=== PATIENT | male | born 1995 | race Caucasian/White ===

== ENCOUNTER 2016-05-22 14:34 | Inpatient (IN) | payer OTHER ==
[~2016-05-22] VITALS: Ht 180.3 cm; Wt 70.7 kg
--- NOTE | 2016-05-22 14:38 | ED.REPORT ---
HPI-Overdose/Alcohol Toxicity Date of Service May 22, 2016 ED Provider: José Miguel Martell MD A 21 year old male with a history of gender transition is brought to the ED due to a suicide attempt through overdose. The pt intentional ingested 120 Clonidine three hours ago in addition to half a bottle of tequila. Paramedics found his bradycardic in the 30's. History is limited due to pt condition. Nursing Notes Stated Complaint: SUICIDIAL IDEATIONS Nursing Notes Reviewed: Yes Allergies: Coded Allergies: No Known Allergies (Unverified , 05/22/16) General Time Seen by Provider: 14:36 Chief Complaint Suicidal attempt Hx Obtained From: Patient, EMS Arrived By: Ambulance Onset Occurred: 1 - 4 hours ago Symptom Duration: Since onset Recent Healthcare: No recent doctor visit, No recent hospitalization Similar Sx Previous: No Past Medical History Past Medical History gender transition Past Surgical History none reported Smoking History Unknown if Ever Smoker Social History none reported Ambulatory Status Independent Review of Systems Unable to Obtain ROS Patient condition Physical Exam Initial Vital Signs see paper chart Initial VS: Reviewed General/Constitutional: Awake Alertness: Positive: Somnolent GCS 14 open eyes to voice Respiratory / Chest: Atraumatic, Breath sounds NL, Breath sounds = bilat, No respiratory distress Cardiovascular: Regular rhythm, Heart sounds NL Heart Rate / Rhythm: Positive: Bradycardia Abdomen: Atraumatic, Soft, Non-tender Mental Status: Positive: Lethargic Lethargic Head / Eyes: Atraumatic, Normocephalic ENT: Atraumatic, Airway patent, Mucous membranes moist Neck: Atraumatic, Supple, Full range of motion Back: Atraumatic, Full range of motion Skin: Atraumatic, Color NL, No rash, Warm, Dry Upper Extremity / MS: Atraumatic, Full range of motion Lower Extremity / Pelvis / MS: Atraumatic, Full range of motion Interpretation & Diagnostics Lab Results Interpretation Result Diagram: 05/22/16 1445 05/22/16 1445 Test 05/22/16 14:45 05/22/16 15:39 White Blood Count 10.0th/mm3 (3.8-10.1) Red Blood Count 5.28mil/mm3 (3.90-5.20) Hemoglobin 15.5g/dL (12.0-15.6) Hematocrit 46.0% (35.0-46.0) Mean Corpuscular Volume 87.1fL (81-100) Mean Corpuscular Hemoglobin 29.4pg (27.0-35.0) Mean Corpuscular Hemoglobin Concent 33.7% (32.0-37.0) Red Cell Distribution Width 12.1% (12.3-15.4) Platelet Count 258bil/L (150-400) Sodium Level 136mEq/L (134-144) Potassium Level 4.1mEq/L (3.5-5.2) Chloride Level 98mEq/L (97-108) Carbon Dioxide Level 24mmol/L (18-29) Blood Urea Nitrogen 14mg/dL (6-20) Creatinine 0.62mg/dL (0.76-1.27) Estimat Glomerular Filtration Rate 171mL/min (>59) Glucose Level 162mg/dL (60-99) Calcium Level 9.7mg/dL (8.5-10.1) Total Bilirubin 0.4mg/dL (0.0-1.2) Aspartate Amino Transf (AST/SGOT) 20U/L (0-50) Alanine Aminotransferase (ALT/SGPT) 15U/L (0-44) Alkaline Phosphatase 47U/L (25-150) Total Protein 6.8g/dL (6.4-8.4) Albumin 4.7g/dL (3.4-5.0) Salicylates Level < 3.0ug/mL (30-250) Acetaminophen Level < 15.0ug/mL Rx (10-25) Alcohol, Quantitative < 10mg/dL (0-10) Hold Rodríguez Top Tube Received (Received) ECG Interpretation ECG Interpretation: normal sinus rhythm with a rate of 68 Time: 16:22 Interpreted by: ED physician X-Ray Chest Interpretation Chest Xray Interpretation: IMPRESSION: Endotracheal tube with the tip just above the cathy/at the origin of the right bronchus. Recommend withdrawing approximately 3 cm No acute consolidation. Findings were personally telephoned to Dr. Inocente Godinez in the emergency department at 1559 hours 05/22/16 Dictated by: Pascual Daily M.D. on 05/22/2016 at 15:57 Approved by: Pascual Daily M.D. on 05/22/2016 at 15:59 Interpretation / Wet Read by: Interpret - Radiologist Procedures Central Line Placement Time: 15:33 Procedure Performed by: ED physician Consent / Setup / Site Prep: Consent from patient, Time-out performed, Oxygen administered, Pulse oximeter applied, ekg monitor applied, Hand hygiene observed, Standard surgical scrub, Max barrier precaution, Sterile drapes applied, Position supine Skin Preparation Agent: Hibiclens - Chlorhexidine Procedural Sedation/Analgesia: Sedation: Etomidate, Sedation: Other ( succinylcholine) Side / Location / Ultrasound: Subclavian right, Ultrasound assisted Catheter / Lumen / Technique: Catheter size (7.5), Triple lumen, Seldinger technique, Secured w catheter device, Secured with tape Central Line Tip Location: Cath tip good position in the SVC Post-Procedure / Complications: Antibiotic oint applied, Dressing placed, Condition improved, Tolerated procedure well, Patient stable Intubation Time: 15:08 Procedure Performed by: ED physician Consent / Setup / Site Prep: Consent from patient, Time-out performed, Oxygen administered, Pulse oximeter applied, ekg monitor applied, Hand hygiene observed Patient Position: Sniff position Blade / ET Tube / Route: Davison scope, Route: oral Premedicated: Atropine ___ mg Procedural Sedation/Analgesia: Sedation: Etomidate Neuromuscular Agent: Succinylcholine ET Confirmation: Direct visualization, BS equal, End tidal CO2 device, CXR, Rising O2 sat Secured / Marked: ET tube device Complications: None Post-Procedure: Condition improved, Tolerated procedure well, Patient stable Re-Eval/Medical Decision Med Decision/Clinical Course 21-year-old born male identifies as female presenting after taking 120 clonidine 3 hours prior to arrival. Patient presented somnolent. ACS was initially 14 but then dropped quickly and patient was not protecting airway. Patient was bradycardic in the 30s. Patient was intubated emergently. Central line was placed. Patient's heart rate improved with 3 doses atropine. Discussed with poison control and they recommended Narcan which did not help. They also recommended supporting bradycardia with atropine and then if needed dopamine or norepinephrine drip. Patient did not need tripped prior to being transferred. Patient was hypertensive. Patient was sedated with propofol drip. Discussed with family mother and brother who were seen by forensic social worker. Patient transferred to ICU in critical condition. Source of Hx: EMS Re-Evaluation/Progress #1: Time of Eval: 14:58 Re-Evaluation/Progress Note: Pt's heart rate and respiratory rate are decreasing. Re-Evaluation/Progress #2: Time of Eval: 15:08 Re-Evaluation/Progress Note: Pt rechecked, whose heart rate and respiratory rate continue to decrease. Pt is intubated without complications. Re-Evaluation/Progress #3: Time of Eval: 15:33 Re-Evaluation/Progress Note: Pt rechecked, who is stable. Central line is placed. Pt tolerated the procedure and there were no complications. Re-Evaluation/Progress #4: Time of Eval: 16:02 Re-Evaluation/Progress Note: Intubation adjusted following x-ray. Re-Evaluation/Progress #5: Time of Eval: 16:14 Re-Evaluation/Progress Note: Spoke with pt's family regarding pt's condition. Pt's family understands the situation and the need for admission. Consultation : Call Returned at: 14:34 [employer] Principal: Agrees with eval, Agrees with plan Note: Consulted with Poison Control regarding pt's case. Poison Control recommends Narcan and IV fluids, as well as Atropine and Norepinephrine drip if necessary. Counseled Regarding: Diagnosis, Lab results, Need for admission Discharge & Departure Impression: Primary Impression: Clonidine overdose Encounter type: initial encounter Injury intent: intentional self-harm Qualified Code: T46.5X2A - Poisoning by other antihypertensive drugs, intentional self-harm, initial encounter Additional Impressions: Bradycardia Respiratory depression Disposition: ADMITTED TO HOSPITAL Discharge Condition All VS Reviewed: Yes Condition: Stable Referrals: [facility] Crit Care Except Billable Proc Time Spent: 105-134 minutes Services Performed: Patient management by me, Time spent at bedside, Reviewing test results, Documentation in record, Other Scribe Attestation Portions of this note were transcribed by Rayne Najera I, Dr. Martell personally performed the history, physical exam and medical decision-making; I reviewed and confirmed the accuracy of the information in the transcribed note. Signed by: Ck Perez, 05/22/16 and 17:32. copies to: [facility] José Miguel Martell MD May 22, 2016 14:38 RAYNE NAJERA May 22, 2016 15:59
[2016-05-22] MEDS ORDERED: 0.9% Sodium Chloride 1,000 ML IV ONE (14:40)
[2016-05-22 15:07] LABS: Mean Corpuscular Hemoglobin 29.4 pg (27.0-35.0); Mean Corpuscular Volume 87.1 fL (81-100)
[2016-05-22] MEDS ORDERED: Propofol 10,000 mCg/mL 100 mL Inj ONE (15:21)
[2016-05-22] MEDS ORDERED: Alum-Mag Hydrox-Simeth 30 mL Suspension PO PRN (16:00)
[2016-05-22] MEDS ORDERED: Ondansetron 2 mg/mL 2 mL Inj IVPUSH PRN ×2 (16:00→17:20)
--- NOTE | 2016-05-22 16:01 | DRSVH ---
PROCEDURE: X-RAY CHEST ONE VIEW, PORTABLE ([id number]) INDICATIONS: POST INTUBATION TECHNIQUE: One view of the chest was acquired. COMPARISON: None. FINDINGS: Surgical changes and devices: Endotracheal tube with the tip seen at the origin of the right bronchus , just above the cathy. Lungs and pleura: No pleural effusions or pneumothorax. Lungs are clear. Mediastinum: Mediastinal contours appear normal. Heart size is normal. Bones and chest wall: No suspicious bony lesions. Overlying soft tissues appear unremarkable. IMPRESSION: Endotracheal tube with the tip just above the cathy/at the origin of the right bronchus. Recommend withdrawing approximately 3 cm No acute consolidation. Findings were personally telephoned to Dr. Inocente Godinez in the emergency department at 1559 hours 03/26 Dictated by: Pascual Daily M.D. on 05/22/2016 at 15:57 Approved by: Pascual Daily M.D. on 05/22/2016 at 15:59
[2016-05-22] MEDS ORDERED: Atropine 1 mg/10 mL (Code) Syringe IVPUSH ONE (16:26)
--- NOTE | 2016-05-22 16:40 | DRSVH ---
PROCEDURE: X-RAY CHEST ONE VIEW, PORTABLE ([id number]) INDICATIONS: POST CENTRAL LINE PLACEMENT TECHNIQUE: One view of the chest was acquired. COMPARISON: [facility], CR, XR CHEST 1VW (PORTABLE), 05/22/2016, 15:12. FINDINGS: Surgical changes and devices: Endotracheal tube is seen with the tip approximately 4-5 cm above the c jhonny. Enteric tube is present with the tip below the GE junction however not included on the study. There is a right internal jugular central venous catheter with the tip projecting in the lower SVC. Lungs and pleura: No pleural effusions or pneumothorax. Lungs are clear. Mediastinum: Mediastinal contours appear normal. Heart size is normal. Bones and chest wall: No suspicious bony lesions. Overlying soft tissues appear unremarkable. IMPRESSION: Endotracheal tube with the tip approximately 4-5 cm above the cathy. Additional support equipment as detailed above. No pneumothorax. Dictated by: Pascual Daily M.D. on 05/22/2016 at 16:37 Approved by: Pascual Daily M.D. on 05/22/2016 at 16:38
--- NOTE | 2016-05-22 16:53 | ABG ---
DateTimeAnalyzed 16:47:00 -_ pH ____7.520 - 7.350 7.450 pCO2 ___26.8__ -mmHg 35.0 45.0 pO2 607 -mmHg 69.0 116 HCO3- ___21.8__ -mmol/L 22.0 26.0 ABE ____0.8__ -mmol/L -2.0 2.0 tHb ___16.2__ -g/dL O2Hb ___98.1__ -% COHb ____0.5__ -% MetHb ____1.1__ -% sO2 ___99.7__ -% FIO2 __100.0__ -% PEEP ____5.0__ -cmH2O Set_RR ___18.0__ -b/min Vt __500.0__ -L Drawn By MT - Date/Time Notified____ 16:53:00 -_ Oxygen Device 1 VENTILATOR - Notified By MT - Notified Whom ___Dr. Inocente-car[place] -____ B 767 -mmHg tO2 ___23.9__ -Vol%
[2016-05-22] MEDS ORDERED: Propofol 10 mg/mL 20 mL Inj ONE (16:59)
--- NOTE | 2016-05-22 17:37 | PCM.HPMED ---
Subjective Date of Service May 22, 2016 Primary Provider: Admitting Physician: Shilpa Otto MD Primary Care Physician: Cassy Leigh Attending Physician: Shilpa Otto MD Chief Complaint: Clonidine overdose with suicidal ideation History of Present Illness: This is a 21-year-old male who is transgender who was brought to the ER by paramedics with an overdose of clonidine. This occurred 3 hours prior to transport to the emergency room and reportedly ingested 120 clonidine pills. This was an intentional ingestion with suicidal ideation unable to get any further history as patient currently is intubated. Patient was having problems with bradycardia and did respond to some IV atropine. Also had issues with decreased respiratory rate hence required intubation while in the emergency room. Patient's salicylate level was less than 3.0 acetaminophen level less than 15.0 alcohol level less than 10. EKG per ER M.D. and his report revealed normal sinus at a rate of 68. No other history is obtainable at this time. Review of Systems: Unobtainable Home Medications Unobtainable PMH Gender transition Other history is not obtainable Family History Unobtainable Social History Smoking Status: Unknown if Ever Smoker Additional Information All social history unobtainable Exam Vital Signs See ER note Exam Constitutional Young phenotypically male who is currently intubated Head: Normocephalic atraumatic Eyes PERRLA DC EOMI Neck: No adenopathy Chest: Clear to auscultation Cor: Regular rate and rhythm S1-S2 without murmur Abdomen: Soft nontender bowel sounds present Extremities: No pedal edema Skin no rashes Psych: Unable to assess Neuro: Does respond to painful stimuli moves all extremities Lab and Diagnostics Labs Laboratory Tests 72 Hours Test 05/22/16 14:45 05/22/16 15:39 05/22/16 17:16 White Blood Count 10.0th/mm3 (3.8-10.1) Red Blood Count 5.28mil/mm3 (3.90-5.20) Hemoglobin 15.5g/dL (12.0-15.6) Hematocrit 46.0% (35.0-46.0) Mean Corpuscular Volume 87.1fL (81-100) Mean Corpuscular Hemoglobin 29.4pg (27.0-35.0) Mean Corpuscular Hemoglobin Concent 33.7% (32.0-37.0) Red Cell Distribution Width 12.1% (12.3-15.4) Platelet Count 258bil/L (150-400) Sodium Level 136mEq/L (134-144) Potassium Level 4.1mEq/L (3.5-5.2) Chloride Level 98mEq/L (97-108) Carbon Dioxide Level 24mmol/L (18-29) Blood Urea Nitrogen 14mg/dL (6-20) Creatinine 0.62mg/dL (0.76-1.27) Estimat Glomerular Filtration Rate 171mL/min (>59) Glucose Level 162mg/dL (60-99) Calcium Level 9.7mg/dL (8.5-10.1) Total Bilirubin 0.4mg/dL (0.0-1.2) Aspartate Amino Transf (AST/SGOT) 20U/L (0-50) Alanine Aminotransferase (ALT/SGPT) 15U/L (0-44) Alkaline Phosphatase 47U/L (25-150) Total Protein 6.8g/dL (6.4-8.4) Albumin 4.7g/dL (3.4-5.0) Salicylates Level < 3.0ug/mL (30-250) Acetaminophen Level < 15.0ug/mL Rx (10-25) Alcohol, Quantitative < 10mg/dL (0-10) Hold Rodríguez Top Tube Received (Received) Result Diagram: 05/22/16144405/22/161444 Assessment & Plan # Clonidine overdose with suicidal ideation, acute, present on admission [facility] poison control use IV atropine when necessary bradycardia can also use IV Narcan when necessary also may need norepinephrine drip if necessary Currently intubated secondary to respiratory depression and airway protection We will be in suicidal precautions # Suicidal ideation Once medically stable will need to be assessed by psychiatry # DVT prophylaxis We will give the subcutaneous prophylactic Lovenox # CODE STATUS Patient is full code Pain Evaluation: Adequate Pain Control GI Prophylaxis: H2 emery VTE Prophylaxis: Sub-Q Enoxaparin Resuscitation Status: CPR: Attempt Resuscitation Time spent 60 minutes Shilpa Otto MD May 22, 2016 17:36
--- NOTE | 2016-05-22 17:44 | NUR ---
Pt admitted to CCU at approx 1715hrs Pt is intubated, on the vent, propofol infusing at 30mcg. she is sedated, is in SR in the 70's BP elevated current BP 170/132. Family are aware and will be coming up to CCU in a while. They did see pt in the ER and have been updated. Karimi is insitu. NG to suction. Sats are 100% on 40% FIO2.
[2016-05-22 17:50] LABS: APPEARANCE,URINE CLEAR (CLEAR,HAZY); COLOR,URINE YELLOW (YELLOW)
[2016-05-22 17:51] LABS: OCCULT BLOOD,URINE NEGATIVE (NEGATIVE); UROBILINOGEN,URINE NORMAL (NORMAL)
[2016-05-22 18:03] VITALS: BP 158/129; PULSE 62; RESP 15
[2016-05-22 18:15] VITALS: BP 178/135; O2SAT 98
[2016-05-22] MEDS ORDERED: Atropine 1 mg/10 mL (Code) Syringe IVPUSH PRN (18:20)
[2016-05-22 18:23] LABS: TROPONIN T < 0.010 ug/L (0.0-0.011)
[2016-05-22] MEDS: 0.9% Sodium Chloride 1,000 ML IV SCH (18:25)
--- NOTE | 2016-05-22 18:33 | NUR ---
Pt hypertensive and bradycardic Pt continues to be hypertensive although diastolic is decreasing, she is now 141/109. Pt has dropped her HR over the past 30 mins from SR in the 70's to SB in the 40's. notified and order received for atropine if BP drops below 45. NS infusing at 125cc/hr
[2016-05-22 19:04] VITALS: BP 131/99; O2SAT 100
[2016-05-22] MEDS ORDERED: Sodium Chloride LOK Flush 10 mL Syringe IVFLUSH PRN ×2 (20:00)
[2016-05-22 20:30] VITALS: BP 120/83; PULSE 40; RESP 14; O2SAT 100
[2016-05-22] MEDS: Famotidine Inj 50 ML IV SCH (21:22)
[2016-05-22] MEDS: Propofol Inj 1,000,000 MCG in IV Premix 1 EACH IV SCH (22:43)
[2016-05-23] VITALS (13 sets, daily range): BP systolic 109–129; BP diastolic 58–88; PULSE 43–55; RESP 14–18; O2SAT 98–100
[2016-05-23] MEDS: 0.9% Sodium Chloride 1,000 ML IV SCH ×4 (02:02→21:18)
[2016-05-23] MEDS: Propofol Inj 1,000,000 MCG in IV Premix 1 EACH IV SCH (02:02)
[2016-05-23] MEDS ORDERED: CLON0.1T PO (02:31)
[2016-05-23] MEDS ORDERED: ATOM10CA PO (02:31)
[2016-05-23 04:18] LABS: BASOPHILS % (AUTO) 0.2 % (0-3); EOSINOPHILS % (AUTO) 0.8 % (0-5); MONOCYTES % (AUTO) 9.3 % (4-12); Mean Corpuscular Hemoglobin 29.4 pg (27.0-35.0); Mean Corpuscular Volume 87.1 fL (81-100); Platelet Count 227 bil/L (150-400)
--- NOTE | 2016-05-23 04:56 | ABG ---
DateTimeAnalyzed 04:49:00 -_ pH ____7.429 - 7.350 7.450 pCO2 ___33.8__ -mmHg 35.0 45.0 pO2 186 -mmHg 69.0 116 HCO3- ___22.0__ -mmol/L 22.0 26.0 ABE ___-1.0__ -mmol/L -2.0 2.0 tHb ___15.5__ -g/dL O2Hb ___97.5__ -% COHb ____0.3__ -% MetHb ____1.1__ -% sO2 ___98.9__ -% FIO2 ___35.0__ -% PRVC 14 - PEEP ____5.0__ -cmH2O Set_RR ___14.0__ -b/min Vt __500.0__ -L Drawn By AF - Spontaneous_RR ___14.0__ -b/min Oxygen Device 1 VENTILATOR - Notified By mm - Notified Whom rn - B 766 -mmHg tO2 ___21.5__ -Vol% Mitch test N/A -
--- NOTE | 2016-05-23 06:27 | NUR ---
Bradycardia/respiratory/sedation: Pt's heart rate had been between 38-42 most of the night at 0100 it did bump up to 43-45 and at 0400 started to inch into the low 50s. Propofol had been titrated up to 50mcg/kg/min due to pt waking up and being restless and trying to pull ET tube. Pt has maintained good Spo2 at 100% all night. Pt does wake at times and was able to follow commands.
--- NOTE | 2016-05-23 08:22 | DRSVH ---
PROCEDURE: X-RAY CHEST ONE VIEW, PORTABLE ([id number]) INDICATIONS: intubated TECHNIQUE: One view of the chest was acquired. COMPARISON: [facility], CR, XR CHEST 1VW (PORTABLE), 05/22/2016, 15:47. FINDINGS: Surgical changes and devices: Stable position of ETT, nasogastric tube and right IJ CVL. Lungs and pleura: No pleural effusions or pneumothorax. Lungs are clear. Mediastinum: Mediastinal contours appear normal. Heart size is normal. Bones and chest wall: No suspicious bony lesions. Overlying soft tissues appear unremarkable. IMPRESSION: No acute cardiopulmonary disease. Dictated by: Jayden DARNELL Interpreted: Linda Pettit MD on 05/23/2016 at 8:21 Transcribed by: IDA on 05/23/2016 at 8:21 Approved by: Linda Pettit M.D. on 05/23/2016 at 9:52
[2016-05-23] MEDS ORDERED: Influenza (Adult) Vaccine 0.5 mL Syringe IM ONE (08:30)
[2016-05-23] MEDS: Famotidine Inj 50 ML IV SCH ×2 (10:06→21:18)
--- NOTE | 2016-05-23 16:43 | PCM.CHPMED ---
Subjective Date of Service: May 23, 2016 Primary Physician: Admitting Physician: Shilpa Otto MD Primary Care Physician: Cassy Leigh Attending Physician: Shilpa Otto MD Admit Status: From the Emergency Department Chief Complaint: Chief Complaint: Clonidine Overdose History of Present Illness: ICU/pulmonary consult History taken from admit note by Dr. Otto This is a 21-year-old male who is transgender who was brought to the ER by paramedics with an overdose of clonidine. This occurred 3 hours prior to transport to the emergency room and reportedly ingested 120 clonidine pills. This was an intentional ingestion with suicidal ideation unable to get any further history as patient currently is intubated. Patient was having problems with bradycardia and did respond to some IV atropine. Also had issues with decreased respiratory rate hence required intubation while in the emergency room. Patient's salicylate level was less than 3.0 acetaminophen level less than 15.0 alcohol level less than 10. EKG per ER M.D. and his report revealed normal sinus at a rate of 68. No other history is obtainable at this time. We are asked to see the patient to provide ventilatory management Review of Systems: Complete review of systems performed; pertinent positives and negatives per history of present illness; all other review of systems negative PMH Past Medical History Transgender female Hx Any Other Health Problems?: NoHx Diabetes: No Surgical History None Allergies: Coded Allergies: No Known Allergies (Unverified , 05/22/16) Family History Family History Unobtainable from patient Social History Hx Alcohol Use: Yes (occasional)Hx Substance Use: No Smoking Status: Unknown if Ever Smoker Living Arrangement: with Family Exam Vital Signs Vital Sign - Last Date Time Temp Pulse Resp B/P Pulse Ox O2 Delivery O2 Flow Rate FiO2 05/23/16 12:41 53 05/23/16 08:30 36.8 14 125/68 100 Mechanical Ventilator 35 Intake and Output 05/22/16 05/22/16 05/23/16 Cumulative From/Thru 15:00 23:00 07:00 05/22/16 18:01 - 05/23/16 06:05 Intake Total 15 ml 1629 ml 1644 ml Output Total 600 ml 550 ml 1150 ml Balance -585 ml 1079 ml 494 ml Intake IV Total 15 ml 1629 ml 1644 ml Output Urine Total 500 ml 500 ml 1000 ml Gastric Drainage Total 100 ml 50 ml 150 ml General: Alert, Cooperative, No Acute Distress Head: Normal Eyes: PERRLA, EOMI Nose: Mucous Membr Moist/[place] Chest & Lungs: Chest Wall Normal, Clear to auscultation & percussion Cardiovascular: Exam Unremarkable, Regular Rate/Rhythm Pulses: NL carotid, radial, femoral, DP, PT Abdomen: Non-tender Musculoskeletal: Unremarkable Extremities: No cyanosis/clubbing/edma bilat Neurological: Grossly Neurologically Intact Lab and Diagnostics Result Diagram: 05/23/1639905/23/16399 Assessment & Plan Assessment Problem list 1 clonidine overdose 2. Ventilator management Patient was seen and examined this a.m. and determination was made that due to the patient's alertness spontaneous breathing trial will be tried. Patient passed this trial and was extubated this morning. Patient was then transferred to the progressive critical care unit Time spent: 20 minutes Problems: Pain Evaluation: Adequate Pain Control GI Prophylaxis: H2 emery VTE Prophylaxis: Sub-Q Enoxaparin VTE Mechanical Devices: Intermittant Pneumatic CD Resuscitation Status: CPR: Attempt Resuscitation Attending Statement The patient was seen and examined together with Dr. Mejía on 05/23/2015 and I have added additional information to the note above. Reason for Consultation: Ventilator Management, initial Yifan Mejía DO May 23, 2016 16:43 Rex Chaidez MD Jun 10, 2016 09:27
--- NOTE | 2016-05-23 17:42 | NUR ---
Transfer Extubated at 0830 to RA at 99% Alert and oriented x3. Swallow eval complete, tolerating general diet. Saline locked. Dc'd robles catheter with 800cc out, no urine at this time. Up to ambulate with steady gait and SBA. Psych consult ordered. Signed no harm contract, suicide score is a 13 with q30min checks. SB 50's. Family at bedside. Pt appears to be in good spirits with motivation to seek mental health counseling.
--- NOTE | 2016-05-23 17:48 | PCM.PNMED ---
Subjective Date of Service May 23, 2016 Subjective Overnight: Pt remained bradycardic with HR 38-42 overnight. She satted well at 100% O2. Began to wake up towards the morning and was able to follow commands. Today: Did well on a pressure support trial and was awake, alert, and following commands. She was extubated and denies shortness of breath, chest pain, fevers, chills, coughing, or wheezing. She denies suicidal ideation at this time. Exam Vital Signs Vital Sign - Last Date Time Temp Pulse Resp B/P Pulse Ox O2 Delivery O2 Flow Rate FiO2 05/23/16 16:30 36.8 53 14 125/70 100 Room Air 05/23/16 08:30 35 Intake and Output 05/22/16 05/22/16 05/23/16 Cumulative From/Thru 15:00 23:00 07:00 05/22/16 18:01 - 05/23/16 06:05 Intake Total 15 ml 1629 ml 1644 ml Output Total 600 ml 550 ml 1150 ml Balance -585 ml 1079 ml 494 ml Intake IV Total 15 ml 1629 ml 1644 ml Output Urine Total 500 ml 500 ml 1000 ml Gastric Drainage Total 100 ml 50 ml 150 ml Exam General: Alert, Oriented X3, Cooperative, No Acute Distress Head: Normocephalic, atraumatic. External ears normal. Eyes: PERRLA, EOMI. Anicteric sclerae. Mouth: Mouth Normal, Mucous Membranes Moist/[place] Neck: Neck supple with full range of motion. Chest & Lungs: Clear to auscultation bilaterally with no crackles, wheezes, or rhonchi. Cardiovascular: Bradycardic, Normal S1, Normal S2, No Murmurs/Rubs/Gallops Abdomen: Non-tender, Non-distended, No masses, Normoactive bowel tones, Soft Musculoskeletal: Normal Range of Motion Extremities: No cyanosis/clubbing/edema bilaterally Neurological: Grossly Neurologically Intact, Normal Speech Lab and Diagnostics Result Diagram: 05/23/1639905/23/16399 Assessment & Plan Patient is a 21-year-old male who is transgender who was brought to the ER by paramedics with an overdose of clonidine. She was intubated on admission for respiratory depression and was extubated after 1 day, on 05/23/16. 1. Clonidine overdose with suicidal ideation, acute, present on admission. Stable. - Intubated 05/22/16 secondary to respiratory depression and airway protection. Extubated 05/23/16 after successful pressure support trial. - IV atropine when necessary for bradycardia - IV Narcan given once on admission - Monitor blood pressure. 2. Elevated troponin, acute. Not present on admission. Improving. - Pt initially had negative troponin, but repeat troponin increased to 0.67. Now decreased to 0.393. Likely mild insult secondary to myocardial stress related to clonidine overdose. - Will repeat troponin 3. Suicidal ideation. Stable. - Patient denies suicidal ideation today after extubation. - Suicidal precautions - Dr. Calles of Psychiatry has been consulted. We appreciate his input. GI Prophylaxis: H2 emery VTE Prophylaxis: Sub-Q Enoxaparin VTE Mechanical Devices: Intermittant Pneumatic CD Resuscitation Status: CPR: Attempt Resuscitation Attending Statement The patient was seen and examined together with Dr. Valadez on 05/23/2016 and I agree with the history, exam and plan as outlined in the note above. . Landon Valadez May 23, 2016 17:48 Wade Gardner MD May 27, 2016 17:30
--- NOTE | 2016-05-24 00:10 | NUR ---
pt denies any suicidal ideation pt a/o times three, steady on feet around room, coop, pleasant, speaking with family members when visited, spoke with mom with "much needed conversation" stating the conversation went well, mom helping with painting nails, pt up to sink to wash up and brush teeth, gown changed, pt assessed for suicide risk, pt denies any suicidal ideation, tele- sb, sr, bp stable, afebrile, denies cp denies sob, ls-cl, ra sats 96-100%, denies n/v, po intake good, pt saline locked, ivf discontinued from jun, denies pain, mom spending night on pull out couch, pt's grandma coming in at 0530 when pt's mom has to leave for work, plan:continue to monitor t/o night, psych eval in am, labs as ordered,
[2016-05-24 03:06] VITALS: BP 115/66; PULSE 58; RESP 16; O2SAT 99
[2016-05-24 03:40] VITALS: PULSE 58
[2016-05-24 03:42] LABS: BASOPHILS % (AUTO) 0.4 % (0-3); EOSINOPHILS % (AUTO) 2.8 % (0-5); MONOCYTES % (AUTO) 11.3 % (4-12); Mean Corpuscular Hemoglobin 29.7 pg (27.0-35.0); Mean Corpuscular Volume 88.8 fL (81-100); NEUTROPHILS % (AUTO) 60.1 % (40-74); Platelet Count 169 bil/L (150-400)
[2016-05-24 04:49] LABS: TROPONIN T 0.213 ug/L (0.0-0.011)
[2016-05-24 07:21] VITALS: BP 105/65; PULSE 49; RESP 16; O2SAT 100
[2016-05-24] MEDS: Famotidine Inj 50 ML IV SCH (07:24)
[2016-05-24 11:00] VITALS: PULSE 53
--- NOTE | 2016-05-24 12:40 | NUR ---
Social Work Note: Brief Note Data& Assessment: EMR reviewed. Gloria Loja is a 21 year old female transgender patient admitted on 05/22/2016 for clonidine overdose and bradycardia. Per MD pt is medically improved and medically ready for discharge pending psych evaluation. Pt is denying any current suicidal ideation at this time. Per Psych MD request, SW arranged follow up outpt mental health therapist appointment for this May 26 at 2:00p.m at [facility] in [place] with Areli Doherty. Pt also has a follow up appointment with a psychiatrist for June 03 at 2:00p.m. in the same location with Dr. Nguyen. Clinicals faxed per [facility] request. The providers in [place] are the providers that could see the pt the soonest. SW met with pt and pt family at bedside to confirm [place] would not be too far away. Pt and pt family is agreeable. SW also provided pt with information for the [facility] social workers who could help guide pt through the process if she wanted to pursue transitioning and gender reassignment, pt very appreciative. SW assessed for any other unmet needs. Pt and pt family deny any other needs at this time. Pt mother explained pt will be moving to [place] after she is discharged where there is more family support. SW to check in and follow up with pt post psych eval to confirm there is not any other unmet needs. SW to continue to follow. Plan: Anticipated discharge home with mom and family support via POV when medically ready pending psych evaluation. Pt has mental health follow up appointments on May 26 and and [facility] in [place]. Pt and pt family provided with this information. Pt and pt family deny any other needs at this time. SW to check in and follow up with pt post psych eval to confirm there is not any other unmet needs. SW to continue to follow. JACINTA Abraham
[2016-05-24 13:13] VITALS: BP 127/79; PULSE 64; RESP 18; O2SAT 99
--- NOTE | 2016-05-24 14:08 | PCM.DIMED ---
Aidee Bishop DO 05/24/16 1404: Discharge Instructions Date of Service May 24, 2016 Dates of Hospitalization May 22, 2016 at 16:25 Diet No restrictions Activity Limited until seen by PCP Call your provider Fever or Chills, Shortness of breath, Bleeding, Chest pain, Vomitting, Excessive diarrhea, Weakness (unilateral) Patient Instructions You have follow up arranged with a mental health therapist on May 26 at 2:00p.m at [facility] in [place] with Areli Doherty. You also have a follow up appointment with a psychiatrist on June 03 at 2:00p.m. in the same location with Dr. Nguyen. Follow up with your primary care provider within 1 week to review. Follow-up with PCP in: 1 week (THERESA Mehta in [place], [place]) Provider: [facility] Wade Gardner MD 05/27/16 1730: Discharge Instructions Attending's Statement The patient was seen and examined together with Dr. Bishop on 05/24/2016 and I agree with the history, exam and plan as outlined in the note above. . Aidee Bishop DO May 24, 2016 14:04 Wade Gardner MD May 27, 2016 17:30
--- NOTE | 2016-05-24 14:59 | NUR ---
Discharge Pt AAOx4, pleasant and conversant. Mother and/or grandmother at bedside today. Independent with mobility it room, gait steady. Pt denies suicide ideation/plan. F/U appointments scheduled post d/c. D/C teaching complete, pt and family deny questions. VSS. PIV x2 d/c'd in tact.
[2016-05-24] MEDS ORDERED: Succinylcholine Chloride 20 mg/mL 5 mL Inj ONE (15:12)
[2016-05-24] MEDS ORDERED: Propofol 10,000 mCg/mL 20 mL Inj ONE (15:12)
--- NOTE | 2016-05-24 15:19 | NUR ---
Social Work Note: Discharge Data& Assessment: Per and psych, pt is medically ready for discharge. Gloria Loja is a 21 year old female admitted on 05/22/2016 for overdose suicide attempt. Pt was cleared by psych . Per pt is medically improved and ready for discharge. Pt has follow up appointments for this May 26 at 2:00p.m. with Areli Doherty and a psychiatrist appointment on June 03 at 2:00pm with Dr. Nguyen. Pt was also provided with [place] Crisis line number and [facility] . crisis line number in case pt begins to feel suicidal again at any point in time. Pt participated in safety planning and explained she will contact one of the crisis lines or communicate with one of her family members if she ever begins to feel suicidal again. Pt explained " I have a lot of family support now." Pt also provided with counseling service information for in [place] if the counselors in our area do not meet her needs. Pt and pt family deny any other needs at this time. No other discharge needs identified. Plan: Per and psych , pt is medically ready to discharge home with family in [place] with follow up appointment this the with a counselor and the with a psychiatrist. Pt participated in safety planning and will communicate with family or contact the crisis line number if she ever begins to feel suicidal again. Pt and pt family deny any other needs at this time. No other discharge needs identified. JACINTA Abraham
--- NOTE | 2016-05-24 18:06 | CONS ---
[address] [address] CONSULTATION REPORT PATIENT: JAMSHID NGUYỄN : 1995 MR#: [id number] ADMIT: 05/22/2016 JOB ID: [id number] DATE OF ADMISSION: 05/24/2016 DATE OF SERVICE: 05/24/2016 IDENTIFICATION: The patient is a 21-year-old male who is transitioning to become a female. 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 She lives in [place]. REASON FOR ADMISSION: Client went to the emergency department two days ago after overdosing on 120 clonidine. He had marked bradycardia and required intubation. HISTORY OF PRESENT ILLNESS: I was asked to consult on this patient for evaluation of suicide potential. I met with her for a 60 minute evaluation and reviewed course and records kept by [facility]. Her main issue is poor coping skills in the face of marked stressors. It appears that the patient was overwhelmed by current stressful events relating to transitioning to being a female, not fitting in at work and social isolation. The patient believes that they were overwhelmed and isolated and impulsively took the pills in a suicide attempt. At present, the patient denies suicidal ideation, plan or intent. She was able to detail a reasonable safety plan which identified both factors which may lead to suicide and factors which would likely decrease the risk of suicide. She was able to detail several people she could call and is planning to follow up with a therapist. The patient currently is presenting with no emotional lability, good impulse control, judgment, insight and reality testing. PAST MEDICAL HISTORY: MEDICATIONS: Clonidine for ADHD. ALLERGIES: None. ILLNESSES: None. FAMILY MEDICAL HISTORY: Noncontributory. PAST PSYCHIATRIC HISTORY: Client has been seeing a psychiatrist for attention issues and had been treated with clonidine. Client has never had a psychotherapist. PSYCHOSOCIAL HISTORY: Client graduated from high school and works in a restaurant in [facility]. History of trauma: None. The patient's parents when he was young. He has a good relationship with his mother and a poor relationship with his father. Drug and alcohol: None. Lethality: No previous suicide attempts. Client currently denies suicidal ideation. Relationships: Single. Orthodox: None. Legal history: None. MENTAL STATUS: Client was neatly dressed, calm and pleasant. She maintained good eye contact throughout. Speech normal rate and rhythm. Mood: Good. Affect was bright, normal intensity, no emotional liability. Client was calm. Thought process was logical and goal oriented. Patient could appreciate complex abstractions. Thought content: Client shows no evidence of suicidal ideation, plan or intent. She is beginning to future plan how to take care of her needs and is planning to see a therapist. Client was alert and oriented to person, place, and date. Immediate, short and long-term memory intact. Attention and concentration appropriate. Insight and judgment. Good. Impulse control: Highly contained. Reality testing intact. Competence to handle current stressors appears to have returned to normal. IMPRESSION: [place] IAdjustment disorder with disturbance of mood and recent suicide attempt. [place] IINone. [place] IIIRecent overdose on clonidine. [place] IVModerate. [place] VCurrent GAF equal to 50. PLAN: Recommend client be discharged to home with followup with outpatient psychotherapy. We discussed the different qualities that the patient would need to find in a therapist. We went over her safety plan and she detailed a reasonable safety plan should suicidal ideation recur as an outpatient. Both the patient's mother and grandmother were present during evaluation and were able to contribute as well as receive some advice on how to go forward. Thank you for a very interesting consultation. ANGIE
--- NOTE | 2016-05-25 22:27 | PCM.DC.MED ---
Discharge Summary Date of Service May 25, 2016 Dates of Hospitalization Date of Hospital Admission May 22, 2016 at 16:25 Date of Discharge: May 24, 2016 Providers: Admitting Physician: Shilpa Otto MD Primary Care Physician: Cassy Leigh Attending Physician: Shilpa Otto MD Diagnosis at Time of Discharge Diagnosis at Time of Discharge 1. Clonidine overdose with suicidal ideation 2. Elevated troponin 3. Suicidal ideation Brief History From the history and physical performed by Dr. Shilpa Otto on 05/22/2016: This is a 21-year-old male who is transgender who was brought to the ER by paramedics with an overdose of clonidine. This occurred 3 hours prior to transport to the emergency room and reportedly ingested 120 clonidine pills. This was an intentional ingestion with suicidal ideation unable to get any further history as patient currently is intubated. Patient was having problems with bradycardia and did respond to some IV atropine. Also had issues with decreased respiratory rate hence required intubation while in the emergency room. Patient's salicylate level was less than 3.0 acetaminophen level less than 15.0 alcohol level less than 10. EKG per ER M.D. and his report revealed normal sinus at a rate of 68. No other history is obtainable at this time. Hospital Course Patient is a 21-year-old [id number] who was brought to the ER by paramedics with an overdose of clonidine. She was intubated on admission for respiratory depression and was extubated after 1 day, on 05/23/16. 1. Clonidine overdose with suicidal ideation, acute, present on admission. Stable. - Intubated 05/22/16 secondary to respiratory depression and airway protection. Extubated 05/23/16 after successful pressure support trial. - IV atropine was available but not necessary for bradycardia - IV Narcan was given once on admission - Monitored blood pressure and heart rate, which were stable. 2. Elevated troponin, acute. Not present on admission. Improved. - Pt initially had negative troponin, but repeat troponin increased to 0.67 and then decreased to 0.213. Likely from mild insult secondary to myocardial stress related to clonidine overdose. 3. Suicidal ideation. Stable. - Patient denied suicidal ideation after extubation. - Suicidal precautions were implemented. - Patient's grandmother and mother provided social and emotional support. - Dr. Calles of Psychiatry had been consulted. Recommended client be discharged to home with followup with outpatient psychotherapy. - Outpatient therapy and psychiatry appointments were arranged for patient prior to discharge by social work. Exam Vital Signs (Last) Date Time Temp Pulse Resp B/P Pulse Ox O2 Delivery O2 Flow Rate FiO2 05/24/16 13:13 36.7 64 18 127/79 99 Room Air 05/23/16 08:30 35 Exam General: Alert, Oriented X3, Cooperative, No Acute Distress Head: Normocephalic, atraumatic. External ears normal. Eyes: PERRLA, EOMI. Anicteric sclerae. Mouth: Mouth Normal, Mucous Membranes Moist/[place] Neck: Neck supple with full range of motion. Chest & Lungs: Clear to auscultation bilaterally with no crackles, wheezes, or rhonchi. Cardiovascular: Regular rate and rhythm, Normal S1, Normal S2, No Murmurs/Rubs/ Gallops Abdomen: Non-tender, Non-distended, No masses, Normoactive bowel tones, Soft Musculoskeletal: Normal Range of Motion Extremities: No cyanosis/clubbing/edema bilaterally Neurological: Grossly Neurologically Intact, Normal Speech Test 05/22/16 14:45 05/22/16 15:39 05/22/16 17:16 05/24/16 02:55 Magnesium Level 2.0mg/dL (1.6-2.6) Salicylates Level < 3.0ug/mL (30-250) Acetaminophen Level < 15.0ug/mL Rx (10-25) Alcohol, Quantitative < 10mg/dL (0-10) Lactic Acid Level 1.1mmol/L (0.4-2.0) Hold Rodríguez Top Tube Received (Received) Urine Color Yellow (YELLOW) Urine Appearance Clear (CLEAR,HAZY) Urine pH 7.0 (5.0-8.0) Urine Specific [place] 1.010 (1.003-1.035) Urine Protein Negativemg/dL (NEG,TRACE) Urine Glucose (UA) Negativemg/dL (NEGATIVE) Urine Ketones Negativemg/dL (NEGATIVE) Urine Occult Blood Negative (NEGATIVE) Urine Nitrite Negative (NEGATIVE) Urine Bilirubin Negative (NEGATIVE) Urine Urobilinogen Normalmg/dL (NORMAL) Urine Leukocyte Esterase Negative (NEGATIVE) Urine RBC 0-2/hpf (0-2) Urine WBC 0-5/hpf (0-5) Urine Epithelial Cells None/hpf (NONE-MOD) Urine Crystals None seen (NONE SEEN) Urine Bacteria None/hpf (NONE-FEW) Urine Hyaline Casts None/lpf (NONE) Urine Granular Casts None seen (NONE SEEN) Urine Waxy Casts None seen (NONE SEEN) Urine Red Blood Cell Casts None seen (NONE SEEN) Urine White Blood Cell Casts None seen (NONE SEEN) Urine Mucus None seen (None Seen) Urine Trichomonas None seen (NONE SEEN) Urine Yeast None (NONE SEEN) Urinalysis Comment None Urine Culture Reflexed Not indicated White Blood Count 9.4th/mm3 (3.8-10.1) Red Blood Count 4.48mil/mm3 (4.40-5.80) Hemoglobin 13.3g/dL (13.8-17.2) Hematocrit 39.8% (41.0-50.0) Mean Corpuscular Volume 88.8fL (81-100) Mean Corpuscular Hemoglobin 29.7pg (27.0-35.0) Mean Corpuscular Hemoglobin Concent 33.4% (32.0-37.0) Red Cell Distribution Width 12.3% (12.3-15.4) Platelet Count 169bil/L (150-400) Neutrophils (%) (Auto) 60.1% (40-74) Lymphocytes (%) (Auto) 25.1% (14-46) Monocytes (%) (Auto) 11.3% (4-12) Eosinophils (%) (Auto) 2.8% (0-5) Basophils (%) (Auto) 0.4% (0-3) Sodium Level 143mEq/L (134-144) Potassium Level 4.2mEq/L (3.5-5.2) Chloride Level 106mEq/L (97-108) Carbon Dioxide Level 23mmol/L (18-29) Blood Urea Nitrogen 13mg/dL (6-20) Creatinine 0.94mg/dL (0.76-1.27) Estimat Glomerular Filtration Rate 106mL/min (>59) Glucose Level 114mg/dL (60-99) Calcium Level 8.5mg/dL (8.5-10.1) Total Bilirubin 0.3mg/dL (0.0-1.2) Aspartate Amino Transf (AST/SGOT) 24U/L (0-50) Alanine Aminotransferase (ALT/SGPT) 14U/L (0-44) Alkaline Phosphatase 43U/L (25-150) Troponin T 0.213ug/L (0.0-0.011) Total Protein 5.1g/dL (6.4-8.4) Albumin 3.5g/dL (3.4-5.0) Test 05/25/16 05:10 Hold Purple Top Tube Received (Received) Hold [place] Top Tube Received (Received) Followup Plan Discharge Diet: No restrictions Discharge Activity: Limited until seen by PCP Patient Instructions You have follow up arranged with a mental health therapist on May 26 at 2:00p.m at [facility] in [place] with Areli Doherty. You also have a follow up appointment with a psychiatrist on June 03 at 2:00p.m. in the same location with Dr. Nguyen. Follow up with your primary care provider within 1 week to review. Follow-up with PCP in: 1 week (THERESA Mehta in [place], [place]) Provider: MOISES ACEVEDO Time spent Greater than 30 minutes was spent in preparation of discharge with greater than 50% of that time dedicated to patient counseling and coordination of care. . Attending Statement The patient was seen and examined together with Dr. Bishop on 05/24/2016 and I agree with the history, exam and plan as outlined in the note above. . copies to: [facility] Marissa L DO May 25, 2016 22:27 Wade Gardner MD May 27, 2016 17:31
== END 2016-05-24 15:13 | disposition home or self-care (01) | DRG 918 ==
LOC: SED 14:34 → PCC 16:25 → CCU 16:53 → PCC 05-23 12:50
PROVIDERS: ADMIT Specialist; ATTEND Specialist
PROC: 4A033B1 Measurement of Arterial Pressure, Peripheral, Percutaneous Approach (ICD-10-PCS; principal; 2016-05-22)
PROC: 5A1935Z Respiratory Ventilation, Less than 24 Consecutive Hours (ICD-10-PCS; 2016-05-22)
PROC: 0BH17EZ Insertion of Endotracheal Airway into Trachea, Via Natural or Artificial Opening (ICD-10-PCS; 2016-05-22)
DX: T46.5X2A Poisoning by other antihypertensive drugs, intentional self-harm, initial encounter (principal); R45.851 Suicidal ideations; F43.21 Adjustment disorder with depressed mood; R00.1 Bradycardia, unspecified; Y92.9 Unspecified place or not applicable; Z29.8 Encounter for other specified prophylactic measures